=== PATIENT | female | born 1995 | race Caucasian/White ===

== ENCOUNTER 2017-08-29 16:34 | Emergency (ER) | payer OTHER ==
[2017-08-29 17:56] VITALS: BP 142/99
--- NOTE | 2017-08-29 17:56 | EDPHY ---
H & P Stated Complaint: syncopal episode Friday, hit head, still feeling "off", low energy Time Seen by Provider: 08/29/17 17:17 HPI/ROS: CHIEF COMPLAINT: Head injury HISTORY OF PRESENT ILLNESS: 21-year-old female presents with a head injury. 2 days ago, she was at a concert when she had a witnessed syncopal episode. She fell to the ground and hit her head on a plantar. She felt fine the next morning, but since then has had intermittent headaches, fuzzy thinking and difficulty concentrating. Ibuprofen relieves the pain. The headache is currently mild. No neck pain or other injuries. REVIEW OF SYSTEMS: complete 10 point ROS negative except at noted in the HPI - Personal History LMP (Females 10-55): 1-7 Days Ago - Medical/Surgical History Hx Asthma: No Hx Chronic Respiratory Disease: No Hx Diabetes: No Hx Cardiac Disease: No Hx Renal Disease: No Hx Cirrhosis: No Hx Alcoholism: No Hx HIV/AIDS: No Hx Splenectomy or Spleen Trauma: No Other PMH: none reported - Social History Smoking Status: Never smoked - Physical Exam Exam: General Appearance: Alert, pleasant and talkative Head: Normal inspection, no swelling, tender on the right temporal area Eyes: No conjunctival erythema, PERRLA, EOMI ENT, Mouth: No hemotympanum, no oral trauma, no bony tenderness Neck: Nontender, full range of motion without pain Respiratory: No chest wall tenderness, lungs clear bilaterally Cardiovascular: Regular rate and rhythm Abdomen: Abdomen is soft and nontender Skin: No lacerations, no abrasions Back: No midline T/L/S tenderness Extremities: Pelvis is stable and nontender; no extremity tenderness, range of motion without pain Neurological: A&Ox3, normal motor function, normal sensory exam, cranial nerves intact Psychiatric: Mood and affect normal Constitutional: Initial Vital Signs Temperature (C) 36.6 C 08/29/17 16:39 Heart Rate 69 08/29/17 16:39 Respiratory Rate 18 08/29/17 16:39 Blood Pressure 139/97 H 08/29/17 16:39 O2 Sat (%) 100 08/29/17 16:39 O2 Delivery Mode Room Air Allergies/Adverse Reactions: No Known Allergies Allergy (Unverified 08/29/17 16:39) Home Medications: Medication Instructions Recorded NK [No Known Home Meds] 08/29/17 Medical Decision Making ED Course/Re-evaluation: This patient presents after a minor head injury with intermittent headaches. Neurologic exam is normal. Neuro imaging is not indicated. Concussion instructions given. Differential Diagnosis: Skull fracture, cervical spine fracture, intracranial hemorrhage Departure - Departure Disposition: Home, Routine, Self-Care Clinical Impression: Concussion Qualifiers: Encounter type: initial encounter Loss of consciousness presence/duration: without LOC Qualified Code(s): S06.0X0A - Concussion without loss of consciousness, initial encounter Condition: Good Instructions: Concussion (ED) Additional Instructions: You have a concussion. Ibuprofen 600 mg 3 times daily while the headache persists. Return for worsening symptoms or any concerns. Referrals: Sunita Cohen MD [Medical Doctor] - As per Instructions Stand Alone Forms: Statement of Treatment
== END 2017-08-29 18:11 | disposition home or self-care (01) ==
DX: S06.0X0A Concussion without loss of consciousness, initial encounter (principal); W01.198A Fall on same level from slipping, tripping and stumbling with subsequent striking against other object, initial encounter